=== PATIENT | male | born 1975 | race African-American/Black ===

== ENCOUNTER 2024-06-13 20:59 | Emergency (ER) | payer SELFPAY ==
[~2024-06-13] VITALS: Ht 170.2 cm; Wt 75.0 kg
[2024-06-13] MEDS: LORazepam 2 mg/ml vial IV ONE (22:49)
[2024-06-13] MEDS: glucagon, human recombinant 1mg kit IV ONE (22:49)
[2024-06-13 23:23] VITALS: BP 127/50; PULSE 95; RESP 16
[2024-06-13] MEDS ORDERED: fentaNYL/PF 50MCG/1 ML 2ML syringe ONE (23:30)
[2024-06-13] MEDS ORDERED: MIDAZolam 1 MG/ML 5ML VIAL ONE (23:30)
[2024-06-13] MEDS ORDERED: LIDOcaine 2% Viscous 15ml cup ONE (23:31)
[2024-06-13 23:59] VITALS: BP 109/66; PULSE 92; RESP 16; O2SAT 99
[2024-06-14 00:09] VITALS: BP 105/63; PULSE 90; RESP 16; O2SAT 98
[2024-06-14 00:19] VITALS: BP 106/64; PULSE 87; RESP 16; O2SAT 99
[2024-06-14 00:29] VITALS: BP 100/58; PULSE 86; RESP 16; O2SAT 100
[2024-06-14 01:25] VITALS: BP 112/78; PULSE 93; RESP 14; TEMP 97.8; O2SAT 98
== END 2024-06-14 01:27 | disposition home or self-care (01) ==
LOC: ER 21:00
DX: T18.128A Food in esophagus causing other injury, initial encounter (principal); K22.2 Esophageal obstruction; R22.0 Localized swelling, mass and lump, head; W44.F3XA Food entering into or through a natural orifice, initial encounter; Y93.89 Activity, other specified; Y92.89 Other specified places as the place of occurrence of the external cause; Y99.8 Other external cause status
CPT/HCPCS: 43239; 43247; 70490; 82948; 96374; 96375; 99285; J1610; J2060; J2250; J3010; J7030; Z7512; 99152; A4620; C1889

== ENCOUNTER 2024-09-22 06:22 | Emergency (ER) | payer MEDICAID ==
[~2024-09-22] VITALS: Ht 170.2 cm; Wt 87.5 kg
[2024-09-22 06:30] VITALS: BP 147/80; PULSE 96; RESP 18; O2SAT 96
[2024-09-22] MEDS ORDERED: SULF1TAB49 PO (07:45)
[2024-09-22] MEDS: sulfamethoxazole/trimethoprim DS (800/160mg) tablet PO ONE (08:02)
[2024-09-22 08:04] VITALS: TEMP 97.2
== END 2024-09-22 08:05 | disposition home or self-care (01) ==
LOC: ER 06:23
DX: L02.415 Cutaneous abscess of right lower limb (principal); L02.31 Cutaneous abscess of buttock
CPT/HCPCS: 99283

== ENCOUNTER 2024-10-10 19:51 | Emergency (ER) | payer MEDICAID ==
[~2024-10-10] VITALS: Ht 170.2 cm; Wt 88.6 kg
[2024-10-10 20:05] VITALS: BP 130/92; PULSE 72; RESP 14; TEMP 98.9; O2SAT 100
[2024-10-10] MEDS ORDERED: SULF1TAB49 PO (20:44)
[2024-10-10] MEDS ORDERED: MUPI22OI30 TOP (20:44)
[2024-10-10] MEDS ORDERED: CHLO118L3 TOP (20:56)
== END 2024-10-10 20:53 | disposition home or self-care (01) ==
LOC: ER 19:52
DX: L02.415 Cutaneous abscess of right lower limb (principal); L08.9 Local infection of the skin and subcutaneous tissue, unspecified; B95.8 Unspecified staphylococcus as the cause of diseases classified elsewhere
CPT/HCPCS: 99283